=== PATIENT | male | born 1945 | race Caucasian/White ===

== ENCOUNTER 2020-12-25 05:43 | Inpatient (IN) | payer OTHER ==
[~2020-12-25] VITALS: Ht 177.8 cm; Wt 77.6 kg
[2020-12-25 05:45] VITALS: BP 143/71
[2020-12-25 06:14] LABS: HEMATOCRIT 24.3 % (42.0-52.0); HEMOGLOBIN 8.3 gm/dL (14.0-18.0); MCH 31.4 pg (26.0-34.0); MCV 92.2 fL (80.0-100.0); PLATELET COUNT 249 thou/uL (150-400); RBC 2.63 mil/uL (4.50-6.00); RDW 15.4 % (10.5-14.5)
[2020-12-25 06:33] LABS: ALBUMIN 2.3 g/dL (3.4-5.0); CALCIUM 7.8 mg/dL (8.5-10.1); CREATININE 1.6 mg/dL (0.7-1.3); DIRECT BILIRUBIN 0.1 mg/dL (<0.1-0.2); TOTAL BILIRUBIN 0.4 mg/dL (0.2-1.0); TOTAL PROTEIN 5.6 g/dL (6.4-8.2)
[2020-12-25 06:36] LABS: POTASSIUM 2.9 mmol/L (3.5-5.1)
[2020-12-25 06:41] LABS: INR 1.14; PROTIME 12.3 Seconds (10.5-12.1)
--- NOTE | 2020-12-25 07:13 | NUR ---
TOOK OVER CARE TRUDY YU AT THIS TIME
[2020-12-25 09:13] LABS: ABSOLUTE NEUTROPHILS 10.9 thou/uL (1.4-8.2); PLATELET ESTIMATE NORMAL
[2020-12-25 10:39] LABS: URINE BILIRUBIN NEGATIVE (Negative); URINE BLOOD NEGATIVE (Negative); URINE CLARITY CLEAR; URINE COLOR YELLOW; URINE GLUCOSE-RANDOM* NEGATIVE (Negative); URINE KETONES NEGATIVE (Negative); URINE LEUKOCYTES-REFLEX NEGATIVE (Negative); URINE NITRITE-REFLEX NEGATIVE (Negative); URINE PROTEIN (DIPSTICK) NEGATIVE (Negative); URINE SPECIFIC GRAVITY 1.015 (1.005-1.035); URINE UROBILINOGEN 0.2 E.U./dl (0.2-1.0)
[2020-12-25 12:00] VITALS: BP 126/67
[2020-12-25 21:11] VITALS: BP 126/67
--- NOTE | 2020-12-26 03:06 | NUR ---
REPORT RECIEVED FROM ED NURSE CARIN. NEW PT ADMITTED TO ROOM 440. ORIENTED PT TO THIS UNIT AND ROOM. EDUCATION PROVIDED. HIGH FALL RISK EDUCATION REINFORCED, PT VERBALIZED UNDERSTANDING. HIGH FALL PRECAUTIONS IN PLACE. ASSESSESSMENT COMPLETE. PT HAS FLORENCIO VACA PICC D/T PT BEING ON CHEMO. PLACEMENT VERIFIED IN ED. BS CHECKED, 187. ICE WATER PROVIDED FOR PT. ASSISTED PT TO BATHROOM AND BACK TO BED. PT DENIES ANY OTHER NEEDS AT THIS TIME. CALL LIGHT IN REACH.
[2020-12-26 03:30] VITALS: BP 128/78
[2020-12-26 06:10] LABS: HEMATOCRIT 21.2 % (42.0-52.0); HEMOGLOBIN 7.2 gm/dL (14.0-18.0); MCH 31.6 pg (26.0-34.0); MCHC 34.1 g/dL (28.0-37.0); MCV 92.6 fL (80.0-100.0); RBC 2.29 mil/uL (4.50-6.00); WBC 6.2 thou/uL (4.0-11.0)
[2020-12-26 06:13] LABS: CALCIUM 7.5 mg/dL (8.5-10.1); CREATININE 1.4 mg/dL (0.7-1.3); POTASSIUM 3.6 mmol/L (3.5-5.1)
[2020-12-26 08:17] LABS: % SATURATION 27 % (20-39); IRON 32 ug/dL (65-175); TIBC 118 ug/dL (250-450)
[2020-12-26 08:51] LABS: FOLIC ACID 17.6 ng/mL (8.6-58.9)
--- NOTE | 2020-12-26 09:44 | NUR ---
Cm tried to visit x 2, unable to by MD at bedside. Cm tried for 3rd time, asked here dietary bhavin went who picked up this breakfast tray and out the door she went. Cm entered room to see if he needed assist with anything, since noted his was in hurry. Yes, I can't see without my glasses and think i left them on the tray. Cm encouraged him to cont. to stay seated in the recliner, cm looked under bed and behind recliner chair on floor was his glasses, cm passed on information to bedside staff and his . Intro to cm and dcp. Patient prefers going by [facility]. Live with Alice, in house, Independent when feeling ok but have not felt good for few months. drives most time currently. 12 steps from 1st to 2nd floor home. sets up his medication. PCP dr Saranya Lazo at the [facility]. No hh or rehab in the past. Had covid vaccines. Have walker in basement but do not use it per estrellita. Noted during visit that he would current his and then she would walk away then she would correct him often. Will cont. following as needed for dc needs. Possible dc home today or over the weekend. dcp : Home no needs.
[2020-12-26] MEDS ORDERED: MEGESTROL400 MG/11 PO (11:02)
[2020-12-26 11:34] VITALS: BP 128/78
--- NOTE | 2020-12-26 13:30 | NUR ---
PT ASSESSED AT START OF SHIFT. DOING MUCH BETTER. MEGACE HELPING AND PT EATING VERY WELL AT MEALS. DISCHARGING HOME AT THIS TIME AND WILL CHECK SUGARS MORE OFTEN.
== END 2020-12-26 14:05 | disposition home or self-care (01) | DRG 834 ==
LOC: ER 05:43 → EROBS 09:26 → 4S 09:26 → EROBS 11:27 → 4S 21:36
PROVIDERS: Emergency Medicine; ADMIT Hospitalist; ATTEND Hospitalist
DX: C92.00 Acute myeloblastic leukemia, not having achieved remission (principal); E43 Unspecified severe protein-calorie malnutrition; N17.9 Acute kidney failure, unspecified; R63.0 Anorexia; E11.649 Type 2 diabetes mellitus with hypoglycemia without coma; R43.2 Parageusia; R62.7 Adult failure to thrive; Z20.822 Contact with and (suspected) exposure to COVID-19; Z68.24 Body mass index [BMI] 24.0-24.9, adult; Z87.891 Personal history of nicotine dependence
CPT/HCPCS: 10102